=== PATIENT | female | born 1985 | race Two or more races ===

== ENCOUNTER → 2017-08-04 | Outpatient (CLI) | payer OTHER | LOC: CIMAGING 11:37 | PROVIDERS: ATTEND Family Medicine | DX: M25.561 Pain in right knee (principal); M79.672 Pain in left foot; R93.6 Abnormal findings on diagnostic imaging of limbs; Z98.890 Other specified postprocedural states | CPT/HCPCS: 73562-PO; 73630-PO ==

== ENCOUNTER → 2017-10-20 | Outpatient (CLI) | payer OTHER | LOC: CIMAGING 11:19 | PROVIDERS: ATTEND Family Medicine | DX: M79.671 Pain in right foot (principal) | CPT/HCPCS: 73630-PO ==

== ENCOUNTER → 2018-08-05 | Outpatient (CLI) | payer OTHER | LOC: CIMAGING 17:43 | PROVIDERS: ATTEND Family Medicine | DX: M79.671 Pain in right foot (principal) | CPT/HCPCS: 73630-PO ==